=== PATIENT | female | born 1965 | race Caucasian/White ===

== ENCOUNTER 2019-05-27 07:38 | Day surgery (SDC) | payer BC ==
[2019-05-26 16:57] VITALS: BMI 32.4
[2019-05-27 07:57] LABS: #Basophils 0.1 thou/uL (0.0-0.2); #Eosinphils 0.3 thou/uL (0.0-0.7); #Lymphocytes 1.6 thou/uL (1.20-3.40); #Monocytes 0.6 thou/uL (0.11-0.59); #Neutrophils 4.9 thou/uL (1.40-6.50); %Basophils 0.9 % (0.0-1.0); %Eosinophils 4.4 % (0.0-10.0); %Lymphocytes 21.2 % (21.0-51.0); %Neutrophils 65.6 % (42.0-75.0); Hemoglobin 14.2 g/dL (12.0-16.0); Mean Corpuscular HGB CONC 34.2 g/dL (32.0-36.0); Mean Corpuscular Volume 84.9 fL (78.0-98.0); Mean Platelet Volume 6.7 fL (7.4-10.4); Platelet Count 199 thou/uL (130-400); RBC Distribution Width 12.3 % (11.5-14.5); Red Blood Cell (RBC) Count 4.89 mill/uL (4.20-5.40); White Blood Cell (WBC) Count 7.5 thou/uL (4.8-10.8)
[2019-05-27 08:04] LABS: INR-International Normal Ratio 1.1; PTT 25.3 SEC (22.9-36.1); Prothrombin Time 13.7 SEC (12.0-14.7)
[2019-05-27] MEDS ORDERED: Fentanyl 100 MCG/2 ML VIAL ONE (08:04)
[2019-05-27] MEDS ORDERED: Lidocaine 1% PF 5 ML VIAL ONE (08:05)
[2019-05-27] MEDS ORDERED: Sodium Bicarbonate 2.5 MEQ/5 ML VIAL ONE (08:05)
[2019-05-27] MEDS ORDERED: Midazolam HCl 2 mg/2 ml Vial ONE (08:05)
[2019-05-27 10:44] VITALS: BP 136/80; TEMP 97.7
--- NOTE | 2019-05-27 12:53 | ULT ---
ULTRASOUND GUIDED HEPATIC BIOPSY: HISTORY: Abnormal liver function tests. FINDINGS: After informed consent was obtained, the patient was prepped and draped in normal sterile fashion. L ocal anesthesia was obtained with 1% Xylocaine mixed with sodium bicarb. A left lobe biopsy was perf ormed using an 18-gauge needle. The biopsy was performed through a 19 gauge guiding needle. A singl e core biopsy of the left lobe was obtained without difficulty. The patient tolerated the procedure well. There are no immediate complications. A total of 25 mcg of Fentanyl and 0.5 mg of Versed were administered IV during the exam. IMPRESSION: Ultrasound-guided liver biopsy. No immediate complications of the procedure. POS: [place]
== END 2019-05-27 10:30 | disposition home or self-care (01) ==
LOC: ULT 07:38
PROVIDERS: ATTEND Internal Medicine Gastroenterology
PROC: 0FB23ZX Excision of Left Lobe Liver, Percutaneous Approach, Diagnostic (ICD-10-PCS; principal; 2019-05-27)
DX: K76.0 Fatty (change of) liver, not elsewhere classified (principal); K74.0 Hepatic fibrosis; K50.80 Crohn's disease of both small and large intestine without complications; I10 Essential (primary) hypertension; Z87.891 Personal history of nicotine dependence; Z79.82 Long term (current) use of aspirin; Z79.899 Other long term (current) drug therapy
CPT/HCPCS: 47000; 76942; 85025; 85610; 85730; 88307; 88313; J2001; J2250; J3010